=== PATIENT | male | born 1940 | race Asian ===

== ENCOUNTER 2024-03-06 15:11 | Outpatient (CLI) | payer OTHER | END 2024-03-06 19:20 | disposition home or self-care (01) | LOC: MCT 15:11 | PROVIDERS: ATTEND Student in an Organized Health Care Education/Training Program | DX: G31.9 Degenerative disease of nervous system, unspecified (principal); I69.398 Other sequelae of cerebral infarction; I70.0 Atherosclerosis of aorta; M95.2 Other acquired deformity of head | CPT/HCPCS: 70450 ==

== ENCOUNTER 2024-03-25 22:47 | Inpatient (IN) | payer OTHER ==
[~2024-03-25] VITALS: Ht 170.2 cm; Wt 59.0 kg
[2024-03-25 22:54] VITALS: BP 126/78; PULSE 88; RESP 20; TEMP 97.1; O2SAT 98
[2024-03-25 23:27] LABS: BLOOD GAS PH 7.405 (7.35-7.45)
[2024-03-25 23:28] LABS: BLOOD GAS HCO3 17.5 mmol/L (22-26); BLOOD GAS O2 SAT% 97.1 % (92.0-98.5); BLOOD GAS PCO2 28.5 mmHg (35-45)
[2024-03-25 23:40] LABS: BASOPHILS % (AUTO) 0.3 % (0.0-2.0); EOSINOPHILS # (AUTO) 0.3 K/uL (0-0.4); EOSINOPHILS % (AUTO) 2.4 % (0.0-4.0); HEMATOCRIT 35.2 % (36-52); HEMOGLOBIN 12.1 g/dL (12.0-18.0); LYMPHOCYTES # (AUTO) 0.9 K/uL (2.0-11.5); LYMPHOCYTES % (AUTO) 8.8 % (20.5-51.1); MEAN CORPUSCULAR HEMOGLOBIN 32 pg (27-31); MEAN CORPUSCULAR HGB CONC 35 g/dL (33-37); MEAN CORPUSCULAR VOLUME 93.2 fL (80-94); MONOCYTES # (AUTO) 0.9 K/uL (0.8-1.0); MONOCYTES % (AUTO) 8.2 % (1.7-9.3); NEUTROPHILS # (AUTO) 8.5 K/uL (1.8-7.7); NEUTROPHILS % (AUTO) 80.3 % (42.2-75.2); PLATELET COUNT (AUTO) 227 K/uL (140-450); RED BLOOD CELL COUNT(AUTO) 3.77 MIL/uL (4.20-6.10); RED CELL DISTRIBUTION WIDTH 14.9 % (11.6-13.7); WHITE BLOOD COUNT (AUTO) 10.6 K/uL (4.8-10.8)
[2024-03-26] VITALS (7 sets, daily range): BP systolic 111–135; BP diastolic 57–73; PULSE 88–111; RESP 18; TEMP 97.7–98.5; O2SAT 94–97
[2024-03-26 00:03] LABS: ANION GAP 19.5 (8-16); CARBON DIOXIDE 20.9 mmol/L (21-32); CHLORIDE 96 mmol/L (98-107); GLUCOSE 122 mg/dL (74-106); SODIUM SERUM 130 mmol/L (136-145)
[2024-03-26 00:06] LABS: CREATININE 9.2 mg/dL (0.6-1.3); POTASSIUM 6.4 mmol/L (3.5-5.1); UREA NITROGEN, BLOOD 111 mg/dL (7-18)
[2024-03-26 00:09] LABS: ALBUMIN 2.7 g/dL (3.4-5.0); BILIRUBIN,DIRECT 0.1 mg/dL (0.0-0.3); TOTAL BILIRUBIN 0.4 mg/dL (0.0-1.0); TOTAL PROTEIN, SERUM 6.8 g/dL (6.4-8.2)
[2024-03-26 00:14] LABS: APPEARANCE,URINE SL CLOUDY (CLEAR); BILIRUBIN,URINE NEGATIVE (NEGATIVE); BLOOD, URINE 3+ (NEGATIVE); COLOR,URINE YELLOW (YELLOW); LEUKOCYTE ESTERASE ,URINE 1+ (NEGATIVE); NITRITE, URINE NEGATIVE (NEGATIVE); PROTEIN,URINE 2+ (NEGATIVE); UGLUCOSE NEGATIVE (NEGATIVE); UROBILINOGEN,URINE 0.2 EU/dL (0.2 - 1)
[2024-03-26 00:25] LABS: BACTERIA,URINE >30 (MANY) /HPF (None Seen); MUCUS,URINE 1+ /LPF (None Seen); RBC,URINE TOO NUMEROUS TO COUN /HPF (0-5); SQUAMOUS EPITHELIAL CELL,UR 0-3 (FEW) /LPF (0-3 (FEW)); WBC,URINE TOO MANY TO COUNT /HPF (0-5)
[2024-03-26] MEDS: DEXTROSE 50% 50 ML SYR IVP ONE (00:57)
[2024-03-26] MEDS: INSULIN REGULAR, HUMAN 100 UNIT/ML VIAL IVP ONE (01:03)
[2024-03-26] MEDS: CALCIUM GLUC 1 GM/50 mL NS BAG 50 ML IV ONE (01:05)
[2024-03-26] MEDS: SODIUM ZIRCONIUM CYCLOSILICATE 10 GM POWD.PACK PO ONE (01:08)
[2024-03-26] MEDS ORDERED: guaiFENesin DM 200/20 MG-10 ML 10 ML UDC PO PRN (01:15)
[2024-03-26] MEDS ORDERED: ONDANSETRON 4 MG/2 ML VIAL IM/IVP PRN (01:15)
[2024-03-26] MEDS ORDERED: POTASSIUM CHLORIDE 10 MEQ TABER PO PRN (01:15)
[2024-03-26] MEDS ORDERED: DOCUSATE SODIUM 100 MG GELCAP PO PRN (01:15)
[2024-03-26] MEDS ORDERED: LIDO5TDM45 TP (01:18)
[2024-03-26] MEDS ORDERED: [UNRECOGNIZED DRUG - CODE] PO (01:18)
[2024-03-26] MEDS ORDERED: INSU100S5 IJ (01:18)
[2024-03-26] MEDS ORDERED: MIRABULK PO (01:18)
[2024-03-26] MEDS ORDERED: POLY17PD46 PO (01:18)
[2024-03-26] MEDS ORDERED: AMLO10TA PO (01:18)
[2024-03-26] MEDS ORDERED: [UNRECOGNIZED DRUG - CODE] IV (01:18)
[2024-03-26] MEDS ORDERED: SENN-73 PO (01:18)
[2024-03-26] MEDS ORDERED: LIP80 PO (01:18)
[2024-03-26] MEDS ORDERED: CLOP75TA55 PO (01:18)
[2024-03-26] MEDS ORDERED: GLUC1PDS1 IM (01:18)
[2024-03-26] MEDS ORDERED: HEPA500056 (01:18)
[2024-03-26] MEDS ORDERED: MAGN400S29 PO (01:18)
[2024-03-26] MEDS ORDERED: TAMS0.4C96 PO (01:18)
[2024-03-26] MEDS ORDERED: DICL100G32 TP (01:18)
[2024-03-26] MEDS ORDERED: TUBE5SOL28 TD (01:18)
[2024-03-26] MEDS ORDERED: ACET-2619 PO (01:18)
[2024-03-26] MEDS ORDERED: DOCU-299 PO (01:18)
[2024-03-26] MEDS ORDERED: BISA-279 RC (01:18)
[2024-03-26] MEDS ORDERED: FAMO-90 PO (01:18)
[2024-03-26] MEDS ORDERED: NA P133E RC (01:18)
[2024-03-26] MEDS ORDERED: cefTRIAXone 1,000 MG VIAL ONE (01:30)
[2024-03-26] MEDS: HYDROcodone/APAP 7.5/325 MG 1 TAB PO PRN (01:47)
[2024-03-26 06:56] LABS: BASOPHILS % (AUTO) 0.4 % (0.0-2.0); EOSINOPHILS # (AUTO) 0.2 K/uL (0-0.4); EOSINOPHILS % (AUTO) 2.3 % (0.0-4.0); HEMATOCRIT 35.2 % (36-52); HEMOGLOBIN 12.2 g/dL (12.0-18.0); LYMPHOCYTES # (AUTO) 0.7 K/uL (2.0-11.5); LYMPHOCYTES % (AUTO) 8.7 % (20.5-51.1); MEAN CORPUSCULAR HEMOGLOBIN 32 pg (27-31); MEAN CORPUSCULAR HGB CONC 35 g/dL (33-37); MEAN CORPUSCULAR VOLUME 93.4 fL (80-94); MONOCYTES # (AUTO) 0.7 K/uL (0.8-1.0); MONOCYTES % (AUTO) 8.7 % (1.7-9.3); NEUTROPHILS # (AUTO) 6.2 K/uL (1.8-7.7); NEUTROPHILS % (AUTO) 79.9 % (42.2-75.2); PLATELET COUNT (AUTO) 216 K/uL (140-450); RED BLOOD CELL COUNT(AUTO) 3.77 MIL/uL (4.20-6.10); WHITE BLOOD COUNT (AUTO) 7.8 K/uL (4.8-10.8)
[2024-03-26 08:05] LABS: ALANINE AMINOTRANSFERASE 23 U/L (12-78); ALBUMIN 2.5 g/dL (3.4-5.0); ALKALINE PHOSPHATASE 96 U/L (50-136); ANION GAP 20.3 (8-16); ASPARTATE AMINOTRANSFERASE 31 U/L (15-37); CALCIUM 9.1 mg/dL (8.5-10.1); CARBON DIOXIDE 21.2 mmol/L (21-32); CHLORIDE 97 mmol/L (98-107); GLUCOSE 107 mg/dL (74-106); POTASSIUM 5.5 mmol/L (3.5-5.1); SODIUM SERUM 133 mmol/L (136-145); TOTAL BILIRUBIN 0.3 mg/dL (0.0-1.0); TOTAL PROTEIN, SERUM 6.6 g/dL (6.4-8.2)
[2024-03-26 08:41] LABS: UREA NITROGEN, BLOOD 105 mg/dL (7-18)
[2024-03-26] MEDS: PANTOPRAZOLE 40 MG TABEC PO SCH (09:18)
[2024-03-26] MEDS ORDERED: DEXTROSE 50% 50 ML SYR IVP PRN (12:15)
[2024-03-26] MEDS ORDERED: CALCIUM GLUCONATE 10% 1,000 MG in NACL 0.9% 50 ML IV SCH (12:30)
[2024-03-26] MEDS: SODIUM ZIRCONIUM CYCLOSILICATE 10 GM POWD.PACK PO SCH (12:57)
[2024-03-26] MEDS: CALCIUM GLUC 1 GM/50 mL NS BAG 50 ML IV SCH (13:03)
[2024-03-26] MEDS: BLOOD GLUCOSE MONITORING 1 DEV DEV FS SCH (16:48)
[2024-03-26] MEDS: INSULIN LISPRO SLIDING SCALE 100 UNITS/ML VIAL SUBQ PRN (16:50)
[2024-03-26] MEDS: LORazepam 2 MG/ML VIAL IVP ONE (19:45)
[2024-03-26] MEDS: LORazepam 2 MG/ML VIAL ONE (19:49)
[2024-03-26] MEDS: ATORVASTATIN 80 MG TAB PO SCH (20:31)
[2024-03-27] VITALS: BP 136/73; PULSE 110; PULSE 111; RESP 17; TEMP 98.5; O2SAT 97
[2024-03-27] MEDS: ZOLPIDEM 5 MG TAB PO PRN (00:19)
[2024-03-27 04:00] VITALS: BP 111/67; PULSE 80; PULSE 87; RESP 18; TEMP 97.6; O2SAT 96
[2024-03-27 06:57] LABS: BASOPHILS # (AUTO) 0.1 K/uL (0.00-0.22); BASOPHILS % (AUTO) 0.8 % (0.0-2.0); EOSINOPHILS # (AUTO) 0.2 K/uL (0-0.4); EOSINOPHILS % (AUTO) 2.7 % (0.0-4.0); HEMATOCRIT 37.8 % (36-52); HEMOGLOBIN 13.1 g/dL (12.0-18.0); LYMPHOCYTES # (AUTO) 0.9 K/uL (2.0-11.5); MEAN CORPUSCULAR HEMOGLOBIN 32 pg (27-31); MEAN CORPUSCULAR HGB CONC 35 g/dL (33-37); MEAN CORPUSCULAR VOLUME 92.9 fL (80-94); MONOCYTES # (AUTO) 0.9 K/uL (0.8-1.0); MONOCYTES % (AUTO) 15.2 % (1.7-9.3); NEUTROPHILS % (AUTO) 66.3 % (42.2-75.2); PLATELET COUNT (AUTO) 253 K/uL (140-450); RED BLOOD CELL COUNT(AUTO) 4.07 MIL/uL (4.20-6.10); RED CELL DISTRIBUTION WIDTH 14.7 % (11.6-13.7); WHITE BLOOD COUNT (AUTO) 6.1 K/uL (4.8-10.8)
[2024-03-27 07:32] LABS: ALANINE AMINOTRANSFERASE 24 U/L (12-78); ALBUMIN 2.7 g/dL (3.4-5.0); ALKALINE PHOSPHATASE 106 U/L (50-136); ANION GAP 16.9 (8-16); ASPARTATE AMINOTRANSFERASE 35 U/L (15-37); CALCIUM 9.6 mg/dL (8.5-10.1); CARBON DIOXIDE 24.1 mmol/L (21-32); CHLORIDE 102 mmol/L (98-107); GLUCOSE 120 mg/dL (74-106); SODIUM SERUM 138 mmol/L (136-145); TOTAL BILIRUBIN 0.4 mg/dL (0.0-1.0); TOTAL PROTEIN, SERUM 7.4 g/dL (6.4-8.2)
[2024-03-27 08:00] VITALS: BP 124/70; PULSE 79; RESP 16; TEMP 97; O2SAT 97
[2024-03-27 08:30] LABS: UREA NITROGEN, BLOOD 85 mg/dL (7-18)
[2024-03-27 08:31] LABS: CREATININE 5.9 mg/dL (0.6-1.3)
[2024-03-27] MEDS: CLOPIDOGREL 75 MG TAB PO SCH (09:37)
[2024-03-27] MEDS: SENNA 8.6 MG TAB PO SCH (09:37)
[2024-03-27] MEDS: amLODIPine 5 MG TAB PO SCH (09:38)
[2024-03-27] MEDS: TAMSULOSIN 0.4 MG CAP PO SCH (09:42)
[2024-03-27 12:00] VITALS: BP 108/60; PULSE 67; PULSE 94; RESP 18; TEMP 97.6; O2SAT 98
[2024-03-27] MEDS: ACETAMINOPHEN 325 MG TAB PO PRN (13:09)
[2024-03-27] MEDS: NACL 0.9% 1,000 ML IV SCH (13:46)
[2024-03-27 16:00] VITALS: BP 123/63; PULSE 96; PULSE 98; RESP 18; TEMP 97; O2SAT 98
[2024-03-27 20:00] VITALS: BP 101/73; PULSE 79; PULSE 99; RESP 18; TEMP 98.2; O2SAT 97
[2024-03-27] MEDS: LORazepam 2 MG/ML VIAL IM/IVP PRN (20:07)
[2024-03-28] VITALS: BP 134/74; PULSE 82; PULSE 86; PULSE 93; RESP 18; TEMP 97.9; O2SAT 100
[2024-03-28 04:00] VITALS: BP 105/65; PULSE 80; PULSE 94; RESP 18; TEMP 97.2; O2SAT 96
[2024-03-28 07:15] LABS: BASOPHILS % (AUTO) 0.7 % (0.0-2.0); EOSINOPHILS # (AUTO) 0.1 K/uL (0-0.4); EOSINOPHILS % (AUTO) 2.4 % (0.0-4.0); HEMATOCRIT 37.4 % (36-52); LYMPHOCYTES # (AUTO) 1.2 K/uL (2.0-11.5); LYMPHOCYTES % (AUTO) 18.8 % (20.5-51.1); MEAN CORPUSCULAR HEMOGLOBIN 33 pg (27-31); MEAN CORPUSCULAR HGB CONC 35 g/dL (33-37); MEAN CORPUSCULAR VOLUME 94.2 fL (80-94); MONOCYTES # (AUTO) 0.8 K/uL (0.8-1.0); MONOCYTES % (AUTO) 12.5 % (1.7-9.3); NEUTROPHILS % (AUTO) 65.6 % (42.2-75.2); PLATELET COUNT (AUTO) 267 K/uL (140-450); RED BLOOD CELL COUNT(AUTO) 3.98 MIL/uL (4.20-6.10); RED CELL DISTRIBUTION WIDTH 14.8 % (11.6-13.7); WHITE BLOOD COUNT (AUTO) 6.1 K/uL (4.8-10.8)
[2024-03-28 08:00] VITALS: BP 120/59; PULSE 88; PULSE 97; RESP 18; TEMP 97.2; O2SAT 99
[2024-03-28 08:20] LABS: ALANINE AMINOTRANSFERASE 23 U/L (12-78); ALBUMIN 2.7 g/dL (3.4-5.0); ALKALINE PHOSPHATASE 98 U/L (50-136); ANION GAP 18.4 (8-16); ASPARTATE AMINOTRANSFERASE 32 U/L (15-37); CARBON DIOXIDE 21.8 mmol/L (21-32); CHLORIDE 103 mmol/L (98-107); GLUCOSE 128 mg/dL (74-106); POTASSIUM 4.2 mmol/L (3.5-5.1); SODIUM SERUM 139 mmol/L (136-145); TOTAL BILIRUBIN 0.3 mg/dL (0.0-1.0); TOTAL PROTEIN, SERUM 7.1 g/dL (6.4-8.2)
[2024-03-28 08:22] LABS: CREATININE 4.1 mg/dL (0.6-1.3); UREA NITROGEN, BLOOD 71 mg/dL (7-18)
[2024-03-28 16:00] VITALS: BP 131/70; PULSE 96; RESP 18; TEMP 98; O2SAT 97
[2024-03-28 20:00] VITALS: PULSE 99; RESP 18; TEMP 98.2
[2024-03-29 07:19] LABS: BASOPHILS % (AUTO) 0.6 % (0.0-2.0); EOSINOPHILS # (AUTO) 0.2 K/uL (0-0.4); EOSINOPHILS % (AUTO) 2.4 % (0.0-4.0); HEMATOCRIT 35.2 % (36-52); HEMOGLOBIN 12.1 g/dL (12.0-18.0); LYMPHOCYTES # (AUTO) 1.1 K/uL (2.0-11.5); LYMPHOCYTES % (AUTO) 16.3 % (20.5-51.1); MEAN CORPUSCULAR HEMOGLOBIN 32 pg (27-31); MEAN CORPUSCULAR HGB CONC 34 g/dL (33-37); MEAN CORPUSCULAR VOLUME 93.8 fL (80-94); MONOCYTES # (AUTO) 0.7 K/uL (0.8-1.0); MONOCYTES % (AUTO) 9.4 % (1.7-9.3); NEUTROPHILS % (AUTO) 71.3 % (42.2-75.2); PLATELET COUNT (AUTO) 299 K/uL (140-450); RED BLOOD CELL COUNT(AUTO) 3.75 MIL/uL (4.20-6.10); RED CELL DISTRIBUTION WIDTH 14.8 % (11.6-13.7)
[2024-03-29 07:46] LABS: ALANINE AMINOTRANSFERASE 18 U/L (12-78); ALBUMIN 2.6 g/dL (3.4-5.0); ALKALINE PHOSPHATASE 94 U/L (50-136); ANION GAP 13.7 (8-16); ASPARTATE AMINOTRANSFERASE 22 U/L (15-37); CARBON DIOXIDE 24.3 mmol/L (21-32); CHLORIDE 107 mmol/L (98-107); CREATININE 3.2 mg/dL (0.6-1.3); GLUCOSE 129 mg/dL (74-106); SODIUM SERUM 141 mmol/L (136-145); TOTAL BILIRUBIN 0.4 mg/dL (0.0-1.0); TOTAL PROTEIN, SERUM 6.7 g/dL (6.4-8.2); UREA NITROGEN, BLOOD 58 mg/dL (7-18)
[2024-03-29 14:23] VITALS: BP 128/64; PULSE 90; RESP 18; TEMP 97.1
== END 2024-03-29 14:38 | DRG 726 ==
LOC: MED 22:47 → MTU 03-26 01:13
PROVIDERS: ADMIT Student in an Organized Health Care Education/Training Program; ATTEND Student in an Organized Health Care Education/Training Program
DX: N40.1 Benign prostatic hyperplasia with lower urinary tract symptoms (principal); N17.9 Acute kidney failure, unspecified; N39.0 Urinary tract infection, site not specified; E87.1 Hypo-osmolality and hyponatremia; I69.354 Hemiplegia and hemiparesis following cerebral infarction affecting left non-dominant side; E87.5 Hyperkalemia; R31.9 Hematuria, unspecified; N28.89 Other specified disorders of kidney and ureter; E11.22 Type 2 diabetes mellitus with diabetic chronic kidney disease; I12.9 Hypertensive chronic kidney disease with stage 1 through stage 4 chronic kidney disease, or unspecified chronic kidney disease; N18.9 Chronic kidney disease, unspecified; Z66 Do not resuscitate; Z86.73 Personal history of transient ischemic attack (TIA), and cerebral infarction without residual deficits
CPT/HCPCS: 36415; 36600; 71045; 76770; 80048; 80053; 80076; 81001; 82803; 82948; 83605; 83880; 85025; 87040; 87081; 87086; 93005; 96365; 96375; 97110; 97112; 97163-GP; 97530; 99291; J0610; J0696; J1815; J2060; J7060